=== PATIENT | female | born 2005 | race Two or more races ===

== ENCOUNTER 2025-07-06 06:40 | Emergency (ER) | payer OTHER ==
[~2025-07-06] VITALS: Ht 165.1 cm; Wt 45.4 kg
[2025-07-06 07:18] VITALS: BP 116/71; O2SAT 98
[2025-07-06] MEDS ORDERED: FAMOtidine 10 MG/ML (4ML VIAL) IV ONE (08:45)
[2025-07-06] MEDS ORDERED: 0.9 % SODIUM CHLORIDE 1,000 ML IV ONE (08:45)
[2025-07-06] MEDS ORDERED: ONDANSETRON HCL 2 MG/ML VIAL IV ONE (08:45)
[2025-07-06 09:14] LABS: BASO % 0.4 % (0.1-1.2); EOS # 0.03 (0.04-0.54); EOS % 0.2 % (0.7-7.0); LYMPH # 2.01 (1.18-3.74); LYMPH % 10.6 % (19.3-53.1); MEAN PLATELET VOLUME 9.60 fl (9.4-12.4); MONO # 0.93 (0.24-0.82); MONO % 4.9 % (4.7-12.5); NEUT # 15.76 (1.56-6.13); NEUT % 83.3 % (34.0-71.1); RED CELL DISTRIBUTION WIDTH 12.3 % (11.6-14.4)
[2025-07-06 09:36] LABS: INR 1.11
[2025-07-06 09:43] LABS: ALT/SGPT 16.0 U/L (12-78); AST/SGOT 15.0 U/L (15-37); BILIRUBIN TOTAL 0.57 mg/dL (0.3-1.2); BUN CREA RATIO 17.0 (7.0-25.0); CREATININE SERUM 0.54 mg/dL (0.55-1.02); GFR 142.51; GLOBULINA 3.3 G/DL (2.4-3.5); GLUCOSE FASTING 134.0 mg/dL (65-100); OSMOLALITY SERUM 284.0 MOSM/KG (275-295)
[2025-07-06] MEDS ORDERED: CEFTRIAXONE SODIUM 1,000 MG VIAL IV ONE (09:45)
[2025-07-06 13:23] LABS: BASO % 0.2 % (0.1-1.2); EOS # 0.00 (0.04-0.54); EOS % 0.0 % (0.7-7.0); LYMPH # 0.77 (1.18-3.74); LYMPH % 4.3 % (19.3-53.1); MEAN PLATELET VOLUME 9.60 fl (9.4-12.4); MONO # 0.62 (0.24-0.82); MONO % 3.5 % (4.7-12.5); NEUT # 16.31 (1.56-6.13); NEUT % 91.5 % (34.0-71.1); RED CELL DISTRIBUTION WIDTH 12.4 % (11.6-14.4)
[2025-07-06] MEDS ORDERED: PROBIOTIC1 EAC2 PO (13:38)
[2025-07-06] MEDS ORDERED: CIPRO500 MG PO (13:38)
[2025-07-06] MEDS ORDERED: METRONIDAZOLE500 MG PO (13:38)
[2025-07-06] MEDS ORDERED: PEPCID AC20 MG PO (13:38)
== END 2025-07-06 13:43 | disposition home or self-care (01) ==
LOC: ER 06:40
PROVIDERS: General Practice
DX: K59.00 Constipation, unspecified (principal); R11.2 Nausea with vomiting, unspecified; K52.89 Other specified noninfective gastroenteritis and colitis